=== PATIENT | male | born 1985 | race Caucasian/White ===

== ENCOUNTER 2018-11-30 00:03 | Emergency (ER) | payer SELFPAY ==
[2018-11-30 00:18] VITALS: BP 134/88; PULSE 100; RESP 20; TEMP 98.6; O2SAT 97
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
== END 2018-11-30 00:45 | disposition home or self-care (01) ==
LOC: C.ER 00:03
DX: S80.12XA Contusion of left lower leg, initial encounter (principal); V03.00XA Pedestrian on foot injured in collision with car, pick-up truck or van in nontraffic accident, initial encounter; Y92.89 Other specified places as the place of occurrence of the external cause; Y99.0 Civilian activity done for income or pay